=== PATIENT | female | born 1960 | race Caucasian/White ===

== ENCOUNTER 2017-02-23 12:44 | Emergency (ER) | payer MEDICARE, MEDICAID ==
[2017-02-23 13:41] VITALS: BP 151/100
--- NOTE | 2017-02-23 14:10 | ED Physician Documentation ---
History of Present Illness - Stated complaint Stated Complaint: HEADACHE, SHOULDER/NECK PX - Chief complaint Chief Complaint: General - Additonal information Additional information: [place] 56 [place] after her sons dies to provide support for family has chronic neck and pack pain 2/2 prior injuries sees a pain clonic take percocet 7.5/325 TID has run out will be back home in 2 weeks pain is getting worse - same as her usual pain no CP AP SOA etc she has called her pain clinic but they cannot refill without seeing pt in person, and she tried local walk ins but could not be seen due to insurnace issues Review of Systems Constitutional: denies: Fever, Chills Cardiac: denies: Chest pain / pressure GI: denies: Abdominal Pain Musculoskeletal: reports: Neck pain, Back pain Endocrine: denies: Easy bruising / bleeding Immunocompromised: denies: Immunocompromised PD PAST MEDICAL HISTORY - Present Medications Home Medications: Ambulatory Orders Medication Instructions Recorded Confirmed Citalopram [CeleXA] 0 mg PO DAILY 02/23/17 02/23/17 Levothyroxine Sodium 0 mcg PO DAILY 02/23/17 02/23/17 Lidocaine Patch 5% [Lidoderm Patch] 1 each TOP DAILY PRN #10 patch 02/23/17 Oxycodone HCl/Acetaminophen 1 each PO Q8HR #42 tablet 02/23/17 [Percocet 7.5-325 mg Tablet] buPROPion [Wellbutrin Xl] 0 mg PO DAILY 02/23/17 02/23/17 - Allergies Allergies/Adverse Reactions: Allergies Allergy/AdvReac Type Severity Reaction Status Date / Time No Known Drug Allergies Allergy Verified 02/23/17 13:15 - Social History Does the pt smoke?: Yes Smoking Status: Current every day smoker PD ED PE NORMAL - Vitals Vital signs reviewed: Yes - HEENT HEENT: Atraumatic - Neck Neck: No bony TTP, Other (right sided TTP and stiffness, no rash) - Cardiac Cardiac: RRR - Respiratory Respiratory: No respiratory distress, Clear bilaterally - Abdomen Abdomen: Soft, Non tender - Derm Derm: Normal color - Extremities Extremities: No deformity, Normal ROM s pain - Neuro Neuro: Alert and oriented X 3, No motor deficit, No sensory deficit - Psych Psych: Other (little anxious) Results - Vitals Vitals: Vital Signs - 24 hr 02/23/17 02/23/17 13:11 13:30 Temperature 36.6 C Heart Rate 109 H 100 Respiratory 18 20 Rate Blood Pressure 158/100 H 151/100 H O2 Saturation 99 Oxygen O2 Source Room air PD MEDICAL DECISION MAKING - ED course ED course: explained to pt that we do not normally refill controlled sustances in the ER but for this specific unfortunate event will rx 2 weeks worth - very clear with pt that this will not be able to be repeated in the ER and to be sure she gets home to her prescribing pain clinic by then Departure - Departure Disposition: Home, Self Care Clinical Impression: Medication refill Chronic pain Qualifiers: Chronic pain type: other chronic pain Qualified Code(s): G89.29 - Other chronic pain Condition: Good Prescriptions: Oxycodone HCl/Acetaminophen [Percocet 7.5-325 mg Tablet] 1 each PO Q8HR #42 tablet Lidocaine Patch 5% [Lidoderm Patch] 1 each TOP DAILY PRN #10 patch PRN Reason: Pain Comments: The ER will not be able to refill any more controlled substances even for such extreme circumstances so please be sure to get back to your prescribing doctor within 2 weeks Also please get your blood pressure rechecked - it was high today
== END 2017-02-23 14:21 | disposition home or self-care (01) ==
LOC: ED 12:44
DX: Z76.0 Encounter for issue of repeat prescription (principal); R51 Headache; M54.2 Cervicalgia; M25.519 Pain in unspecified shoulder; G89.29 Other chronic pain
CPT/HCPCS: 99282; 99283